=== PATIENT | female | born 1965 | race Caucasian/White ===

== ENCOUNTER 2022-06-30 07:35 | Day surgery (SDC) | payer BC ==
[~2022-06-30 07:35] MED LIST: Lactated Ringers 1,000 ML IV SCH; Sodium Chloride 0.9% 10 ML Syringe FLUSH PRN; Sodium Chloride 0.9% 2.5 ML Syringe FLUSH PRN; Sodium Chloride 0.9% 20 ML SDV IV PRN
[2022-06-30] MEDS ORDERED: Lidocaine 2% 5 ML SDV ONE (09:01)
[2022-06-30] MEDS ORDERED: Propofol 200 MG/20 ML SDV ONE ×2 (09:01→09:19)
== END 2022-06-30 09:32 | disposition home or self-care (01) ==
LOC: MW.SDS 07:35
PROVIDERS: ATTEND Surgery
DX: Z12.11 Encounter for screening for malignant neoplasm of colon (principal); D12.2 Benign neoplasm of ascending colon; D12.3 Benign neoplasm of transverse colon; E03.9 Hypothyroidism, unspecified; Z86.010 Personal history of colon polyps; Z80.0 Family history of malignant neoplasm of digestive organs; Z79.899 Other long term (current) drug therapy; Z79.890 Hormone replacement therapy; Z98.890 Other specified postprocedural states
CPT/HCPCS: 45380; 45385; J2704; J7120

== ENCOUNTER 2023-06-10 07:30 | Emergency (ER) | payer BC ==
[2023-06-10] MEDS ORDERED: Alum Hydro/Mag Hydro/Simeth XS 15 ML, Lidocaine 2% 5 ML PO ONE ×2 (07:50)
[2023-06-10] MEDS ORDERED: Sucralfate Suspension 1 GM/10 ML Cup PO ONE (07:51)
== END 2023-06-10 09:01 | disposition home or self-care (01) ==
LOC: MW.ED 07:30
DX: K20.80 Other esophagitis without bleeding (principal)
CPT/HCPCS: 99283; A9270